=== PATIENT | female | born 1950 | race Two or more races ===

== ENCOUNTER 2019-01-31 12:17 | Outpatient (CLI) | payer OTHER | END 2019-01-31 12:31 | disposition home or self-care (01) | LOC: NUCLEAR 12:17 | DX: M81.0 Age-related osteoporosis without current pathological fracture (principal) ==

== ENCOUNTER 2019-05-12 16:27 | Emergency (ER) | payer OTHER ==
[~2019-05-12] VITALS: Ht 165.1 cm; Wt 61.2 kg
== END 2019-05-12 21:54 | disposition home or self-care (01) ==
LOC: ER 16:27
DX: K52.9 Noninfective gastroenteritis and colitis, unspecified (principal); E86.0 Dehydration; M94.0 Chondrocostal junction syndrome [Tietze]

== ENCOUNTER 2019-05-18 11:17 | Inpatient (IN) | payer OTHER ==
[~2019-05-18] VITALS: Ht 157.5 cm; Wt 51.3 kg
--- NOTE | 2019-05-18 11:53 | NUR ---
SE RECIBE PACIENTE ALERTA Y ORIENTADA EN LAS FREDERIC ESFERAS, VERBALIZA DIFICULTAD PARA RESPIRAR. SATURACION 100% SE REALIZA EKG SE PRESENTA A , SE ACOMODA PACIENTE EN AREA DE OBSERVACION PARA EVALUACION MEDICA,
--- NOTE | 2019-05-18 13:09 | NUR ---
MR MONTANEZ ORIENTA A PACIENTE SOBRE ORDENES MEDICAS, COLECTA MUESTRAS DE LABORATORIO Y CANALIZA VENA. RADIOGRAFIA REALIZADA.
--- NOTE | 2019-05-18 19:42 | NUR ---
SE RECIBE PACIENTE DE TURNO ANTERIOR.EN CAMA CON LAS BARANDAS ELEVADAS ESTA ALERTA Y ORIENTADA.ACOMPANADA POR FAMILIAR.AREA DE VENOPUNCION ESTA LIMPIA Y SECA,SUN DE EDEMA. ES ORIENTADA SOBRE MUETRA DE ESPUTO,LO CUAL REFIERE COMPRENDER.ES MANTENIDA CON CABEZERA A 45 GRADOS,BARANDAS ELEVADAS.TIMBRE ACCESIBLE Y EN OBSERVACION CONSNTANTE POR CAMBIOS EN CONDICION.
--- NOTE | 2019-05-19 02:51 | NUR ---
SE RECIBE PACIENTE ALERTA Y ORIENTADA X3 EN CAMA CON BARANDAS ELEVADAS Y CABEZERA A 45 GRADOS, TIENE CANULA NASAL A 3 LITROS, AREA DE VENOPUNCION PATENTE Y SUN DE EDEMA BAJANDO MEDICAMENTOS ORDENADOS.
--- NOTE | 2019-05-19 07:13 | NUR ---
SE RECIBE PACIENTE ALERTA Y ORIENTADA EN CAMA CON BARRANDAS ELEVADAS POR SUSEGURIDAD. PACIENTE CON VENOPUNCION PATENTE SUN DE EDEMA Y ERRITEMA CON .9NSS BAJANDO A 125 ML/HR PACIENTE PENDIENTE RESULTADOS DE LABORATORIO. PACIENTE CONSULTADOCON EL DR.MARCUS ESTRELLA. SE KAMILLE A PACIENTE EN CAMA BAJO OPBSERVACION POR CAMBIOS EN GARCIA CONDICION.
[2019-05-21] MEDS ORDERED: HYPER-SAL4 ML (14:27)
[2019-05-21] MEDS ORDERED: GILTUSS TR TAB1 EACH PO (14:28)
[2019-05-21] MEDS ORDERED: ROSUVASTATIN CA20 MG PO (14:28)
== END 2019-05-23 15:25 | disposition home or self-care (01) | DRG 193 ==
LOC: ER 11:17 → SURH 05-19 15:25 → MEDJ 05-21 13:38
PROVIDERS: ADMIT Specialist
PROC: 3E0F7GC Introduction of Other Therapeutic Substance into Respiratory Tract, Via Natural or Artificial Opening (ICD-10-PCS; 2019-05-19)
PROC: BB24ZZZ Computerized Tomography (CT Scan) of Bilateral Lungs (ICD-10-PCS; principal; 2019-05-20)
PROC: 4A033R1 Measurement of Arterial Saturation, Peripheral, Percutaneous Approach (ICD-10-PCS; 2019-05-23)
DX: J18.1 Lobar pneumonia, unspecified organism (principal); B37.1 Pulmonary candidiasis; E86.0 Dehydration; E87.8 Other disorders of electrolyte and fluid balance, not elsewhere classified; M94.0 Chondrocostal junction syndrome [Tietze]

== ENCOUNTER 2024-04-10 14:34 | Outpatient (CLI) | payer OTHER ==
[~2024-04-10 14:34] MED LIST: GILTUSS TR TAB1 EACH PO; HYPER-SAL4 ML; ROSUVASTATIN CA20 MG PO
== END 2024-04-10 14:51 | disposition home or self-care (01) ==
LOC: RAD 14:34
PROVIDERS: ATTEND Specialist
DX: S92.912A Unspecified fracture of left toe(s), initial encounter for closed fracture (principal); S92.919A Unspecified fracture of unspecified toe(s), initial encounter for closed fracture

== ENCOUNTER 2024-04-11 07:24 | Outpatient (CLI) | payer OTHER | END 2024-04-11 07:25 | disposition home or self-care (01) | LOC: NUCLEAR 07:24 | PROVIDERS: ATTEND Specialist | DX: I82.409 Acute embolism and thrombosis of unspecified deep veins of unspecified lower extremity (principal); I87.2 Venous insufficiency (chronic) (peripheral) ==

== ENCOUNTER → 2024-05-10 08:11 | Outpatient (CLI) | payer OTHER | END | disposition home or self-care (01) | LOC: NUCLEAR 06:00 | PROVIDERS: ATTEND Specialist | DX: S92.902A Unspecified fracture of left foot, initial encounter for closed fracture (principal); M35.3 Polymyalgia rheumatica | CPT/HCPCS: 78315; A9503 ==

== ENCOUNTER 2025-03-14 12:06 | Outpatient (CLI) | payer OTHER | END 2025-03-14 12:11 | disposition home or self-care (01) | LOC: RAD 12:06 | PROVIDERS: ATTEND Specialist | DX: M77.10 Lateral epicondylitis, unspecified elbow (principal) ==